=== PATIENT | male | born 2005 | race Caucasian/White ===

== ENCOUNTER 2023-09-18 16:54 | Emergency (ER) | payer BC, MEDICAID ==
[~2023-09-18] VITALS: Ht 177.8 cm; Wt 63.5 kg
[2023-09-18] MEDS: ondansetron/PF 4mg/2ml inj IV ONE (17:43)
[2023-09-18 17:47] LABS: EOSINOPHILS % (AUTO) 0 % (0-6); HEMOGLOBIN 14.3 g/dl (14.0-17.9); MEAN CORPUSCULAR VOLUME 84.5 FL (78-98); MEAN PLATELET VOLUME 7.7 FL (7.4-10.4)
[2023-09-18 17:48] LABS: BASOPHILS % (AUTO) 0.1 % (0-1); HEMATOCRIT 42.3 % (42.0-52.0); LYMPHOCYTES # (AUTO) 1.4 X10'3 (1.1-4.8); LYMPHOCYTES % (AUTO) 8.7 % (21-51); MEAN CORPUSCULAR HEMOGLOBIN 28.6 PG (27.0-31.0); MEAN CORPUSCULAR HGB CONC 33.8 g/dL (33.0-36.5); MONOCYTES # (AUTO) 0.5 X10'3 (0-0.9); MONOCYTES % (AUTO) 3.1 % (2-12); NEUTROPHILS # (AUTO) 13.9 X10'3 (1.8-7.7); NEUTROPHILS % (AUTO) 88.1 % (42-75); PLATELET COUNT 304 X10'3 (140-440); RED BLOOD COUNT 5.01 X10'6 (4.70-6.10); RED CELL DISTRIBUTION WIDTH 13.2 % (11.5-14.5); WHITE BLOOD COUNT 15.8 X10'3 (4.5-11.0)
[2023-09-18 17:59] LABS: ALANINE AMINOTRANSFERASE 21 U/L (12-78); ALBUMIN 4.8 G/DL (3.4-5.0); ALBUMIN/GLOBULIN RATIO 1.7 (1.1-1.5); ALKALINE PHOSPHATASE 49 IU/L (20-180); ANION GAP 15 (8-16); ASPARTATE AMINO TRANSFERASE 17 U/L (10-37); BLOOD UREA NITROGEN 10 MG/DL (7-18); BUN/CREATININE RATIO 10.4 (10.0-20.0); CALCIUM 9.7 MG/DL (8.5-10.1); CHLORIDE 105 MMOL/L (99-107); CREATININE 0.96 MG/DL (0.60-1.10); GLUCOSE 125 MG/DL (70-104); LIPASE 22 U/L (16-77); POTASSIUM 3.4 MMOL/L (3.5-5.1); SODIUM 141 MMOL/L (135-145); TOTAL PROTEIN 7.7 G/DL (6.4-8.2); eCRCL 111 ML/MIN; eGFR > 90 ML/MIN
[2023-09-18] MEDS: diphenoxylate/atropine tablet (Lomotil) PO ONE (18:43)
[2023-09-18] MEDS: normal saline 1000ml 1,000 ML IV ONE (18:43)
[2023-09-18] MEDS ORDERED: ONDA-245 PO (19:54)
[2023-09-18 19:58] LABS: BILIRUBIN,URINE NEGATIVE (Neg); CLARITY,URINE CLEAR (Clear); COLOR,URINE YELLOW (Yellow); GLUCOSE, URINE NEGATIVE (Neg); KETONES,URINE >=80 mg/dl (Neg); LEUKOCYTE ESTERASE ,URINE NEGATIVE (Neg); NITRITES, URINE NEGATIVE (Neg); OCCULT BLOOD,URINE NEGATIVE (Neg); PROTEIN,URINE NEGATIVE (Neg); UROBILINOGEN,URINE 0.2 E.U/dL (0.2-1.0)
[2023-09-18 19:59] LABS: UA COLLECTION TYPE CLN CATCH MIDSTREAM
[2023-09-18 20:04] VITALS: BP 104/68; PULSE 74; RESP 12; TEMP 98.3; O2SAT 98
== END 2023-09-18 20:11 | disposition home or self-care (01) ==
LOC: ER 16:55
DX: R11.2 Nausea with vomiting, unspecified (principal); R19.7 Diarrhea, unspecified; R10.84 Generalized abdominal pain
CPT/HCPCS: 36415; 80053; 81003; 83690; 85025; 96361; 96374; 99285; J2405; J7030

== ENCOUNTER 2023-09-20 06:39 | Emergency (ER) | payer BC, MEDICAID ==
[~2023-09-20] VITALS: Ht 177.8 cm; Wt 63.1 kg
[~2023-09-20 06:39] MED LIST: ONDA-245 PO
[2023-09-20 07:18] LABS: BASOPHILS % (AUTO) 0.2 % (0-1); EOSINOPHILS # (AUTO) 0.1 X10'3 (0-0.9); EOSINOPHILS % (AUTO) 1.1 % (0-6); HEMATOCRIT 42.8 % (42.0-52.0); HEMOGLOBIN 14.8 g/dl (14.0-17.9); LYMPHOCYTES # (AUTO) 2.4 X10'3 (1.1-4.8); LYMPHOCYTES % (AUTO) 25.2 % (21-51); MEAN CORPUSCULAR HGB CONC 34.6 g/dL (33.0-36.5); MEAN CORPUSCULAR VOLUME 83.9 FL (78-98); MEAN PLATELET VOLUME 7.5 FL (7.4-10.4); MONOCYTES # (AUTO) 0.6 X10'3 (0-0.9); NEUTROPHILS # (AUTO) 6.4 X10'3 (1.8-7.7); NEUTROPHILS % (AUTO) 67.5 % (42-75); PLATELET COUNT 284 X10'3 (140-440); RED CELL DISTRIBUTION WIDTH 12.9 % (11.5-14.5); WHITE BLOOD COUNT 9.5 X10'3 (4.5-11.0)
[2023-09-20] MEDS: metoclopramide 5 mg/ml inj IV ONE (07:27)
[2023-09-20] MEDS: diphenhydrAMINE 50 mg/ml inj IV ONE (07:29)
[2023-09-20] MEDS: glycopyrrolate 0.2mg/ml inj IV ONE (07:32)
[2023-09-20] MEDS: acetaminophen 1,000mg/100ml IV 100 ML IV STA (07:35)
[2023-09-20 07:36] LABS: ALANINE AMINOTRANSFERASE 23 U/L (12-78); ALBUMIN 4.5 G/DL (3.4-5.0); ALBUMIN/GLOBULIN RATIO 1.5 (1.1-1.5); ALKALINE PHOSPHATASE 48 IU/L (20-180); ANION GAP 10 (8-16); ASPARTATE AMINO TRANSFERASE 12 U/L (10-37); BILIRUBIN,TOTAL 0.9 MG/DL (0.1-1.0); BLOOD UREA NITROGEN 18 MG/DL (7-18); BUN/CREATININE RATIO 16.1 (10.0-20.0); CALCIUM 9.1 MG/DL (8.5-10.1); CHLORIDE 104 MMOL/L (99-107); CREATININE 1.12 MG/DL (0.60-1.10); GLUCOSE 100 MG/DL (70-104); LIPASE 29 U/L (16-77); POTASSIUM 3.3 MMOL/L (3.5-5.1); SODIUM 139 MMOL/L (135-145); TOTAL CARBON DIOXIDE 25.3 MMOL/L (24-32); TOTAL PROTEIN 7.5 G/DL (6.4-8.2); eCRCL 95 ML/MIN; eGFR 84 ML/MIN
[2023-09-20] MEDS: normal saline 1000ML IV soln IVB ONE ×2 (07:36→08:16)
[2023-09-20 07:59] LABS: BILIRUBIN,URINE SMALL (Neg); CLARITY,URINE SLIGHTLY CLOUDY (Clear); COLOR,URINE YELLOW (Yellow); GLUCOSE, URINE NEGATIVE (Neg); KETONES,URINE >=80 mg/dl (Neg); LEUKOCYTE ESTERASE ,URINE NEGATIVE (Neg); NITRITES, URINE NEGATIVE (Neg); OCCULT BLOOD,URINE SMALL (Neg); PH,URINE 5.5 (4.8-8.0); PROTEIN,URINE NEGATIVE (Neg); UROBILINOGEN,URINE 0.2 E.U/dL (0.2-1.0)
[2023-09-20 08:05] LABS: UA COLLECTION TYPE CLN CATCH MIDSTREAM
[2023-09-20 08:06] LABS: BACTERIA,URINE FEW /HPF (Neg); MUCUS STRANDS FEW /LPF (Neg); RBC,URINE 0-2 /HPF (0-2); SQUAMOUS EPITHELIAL CELL,UR FEW /LPF (FEW)
[2023-09-20] MEDS: ringers solution, lactated 1000ml IV soln IV ONE (09:06)
[2023-09-20] MEDS: ketorolac trometh 15mg/ml vial 15 MG/ML ML IV ONE (09:06)
[2023-09-20] MEDS: haloperidol lactate 5mg/ml inj IM ONE (09:54)
[2023-09-20 10:48] VITALS: BP 115/75; PULSE 70; RESP 15; TEMP 98.2; O2SAT 96
== END 2023-09-20 11:04 | disposition home or self-care (01) ==
LOC: ER 06:40
DX: R10.13 Epigastric pain (principal); R11.2 Nausea with vomiting, unspecified; R68.83 Chills (without fever); Z79.899 Other long term (current) drug therapy
CPT/HCPCS: 36415; 80053; 81001; 83690; 84145; 85025; 87088; 96361; 96372; 96374; 96375; 99285; J0131; J1200; J1630; J1885; J2765; J3490; J7030; J7120; 96365

== ENCOUNTER 2023-09-21 11:17 | Emergency (ER) | payer BC, MEDICAID ==
[~2023-09-21] VITALS: Ht 177.8 cm; Wt 63.7 kg
[2023-09-21 14:25] LABS: BASOPHILS % (AUTO) 0.2 % (0-1); EOSINOPHILS % (AUTO) 0.2 % (0-6); HEMATOCRIT 42.5 % (42.0-52.0); HEMOGLOBIN 14.5 g/dl (14.0-17.9); LYMPHOCYTES # (AUTO) 1.7 X10'3 (1.1-4.8); LYMPHOCYTES % (AUTO) 16.4 % (21-51); MEAN CORPUSCULAR HEMOGLOBIN 28.6 PG (27.0-31.0); MEAN CORPUSCULAR HGB CONC 34.2 g/dL (33.0-36.5); MEAN CORPUSCULAR VOLUME 83.5 FL (78-98); MEAN PLATELET VOLUME 7.6 FL (7.4-10.4); MONOCYTES # (AUTO) 0.7 X10'3 (0-0.9); MONOCYTES % (AUTO) 6.7 % (2-12); NEUTROPHILS # (AUTO) 7.9 X10'3 (1.8-7.7); NEUTROPHILS % (AUTO) 76.5 % (42-75); PLATELET COUNT 316 X10'3 (140-440); RED BLOOD COUNT 5.09 X10'6 (4.70-6.10); RED CELL DISTRIBUTION WIDTH 13.2 % (11.5-14.5); WHITE BLOOD COUNT 10.3 X10'3 (4.5-11.0)
[2023-09-21 14:53] LABS: ALANINE AMINOTRANSFERASE 29 U/L (12-78); ALBUMIN 4.7 G/DL (3.4-5.0); ALBUMIN/GLOBULIN RATIO 1.6 (1.1-1.5); ALKALINE PHOSPHATASE 47 IU/L (20-180); ANION GAP 15 (8-16); ASPARTATE AMINO TRANSFERASE 36 U/L (10-37); BILIRUBIN,TOTAL 0.9 MG/DL (0.1-1.0); BLOOD UREA NITROGEN 9 MG/DL (7-18); BUN/CREATININE RATIO 7.4 (10.0-20.0); CALCIUM 9.1 MG/DL (8.5-10.1); CHLORIDE 103 MMOL/L (99-107); CREATININE 1.21 MG/DL (0.60-1.10); GLUCOSE 92 MG/DL (70-104); POTASSIUM 3.3 MMOL/L (3.5-5.1); SODIUM 141 MMOL/L (135-145); TOTAL CARBON DIOXIDE 22.7 MMOL/L (24-32); TOTAL PROTEIN 7.6 G/DL (6.4-8.2); eCRCL 88 ML/MIN; eGFR 77 ML/MIN
[2023-09-21 15:23] VITALS: TEMP 98.2
[2023-09-21 16:07] VITALS: BP 126/73; PULSE 78; RESP 18; O2SAT 98
== END 2023-09-21 16:23 | disposition home or self-care (01) ==
LOC: ER 11:18
DX: E87.6 Hypokalemia (principal); R11.2 Nausea with vomiting, unspecified; R19.7 Diarrhea, unspecified; Z79.899 Other long term (current) drug therapy
CPT/HCPCS: 36415; 80053; 85025; 99283

== ENCOUNTER 2024-01-25 20:10 | Emergency (ER) | payer BC, MEDICAID ==
[~2024-01-25] VITALS: Ht 177.8 cm; Wt 54.4 kg
[2024-01-25 20:54] LABS: BASOPHILS % (AUTO) 0.2 % (0-1); EOSINOPHILS % (AUTO) 0.1 % (0-6); HEMATOCRIT 45.5 % (42.0-52.0); MEAN CORPUSCULAR HEMOGLOBIN 29.2 PG (27.0-31.0); MEAN CORPUSCULAR HGB CONC 35.1 g/dL (33.0-36.5); MONOCYTES # (AUTO) 1.7 X10'3 (0-0.9); MONOCYTES % (AUTO) 9.9 % (2-12); NEUTROPHILS # (AUTO) 12.7 X10'3 (1.8-7.7); NEUTROPHILS % (AUTO) 72.8 % (42-75); PLATELET COUNT 338 X10'3 (140-440); RED BLOOD COUNT 5.47 X10'6 (4.70-6.10); WHITE BLOOD COUNT 17.5 X10'3 (4.5-11.0)
[2024-01-25 21:08] LABS: ALANINE AMINOTRANSFERASE 21 U/L (12-78); ALBUMIN 5.2 G/DL (3.4-5.0); ALBUMIN/GLOBULIN RATIO 1.6 (1.1-1.5); ALKALINE PHOSPHATASE 58 IU/L (20-180); ANION GAP 14 (8-16); ASPARTATE AMINO TRANSFERASE 26 U/L (10-37); BILIRUBIN,TOTAL 2.2 MG/DL (0.1-1.0); BLOOD UREA NITROGEN 24 MG/DL (7-18); BUN/CREATININE RATIO 20.7 (10.0-20.0); CALCIUM 9.8 MG/DL (8.5-10.1); CHLORIDE 95 MMOL/L (99-107); CREATININE 1.16 MG/DL (0.60-1.10); GLUCOSE 106 MG/DL (70-104); LIPASE 21 U/L (16-77); POTASSIUM 3.9 MMOL/L (3.5-5.1); SODIUM 135 MMOL/L (135-145); TOTAL CARBON DIOXIDE 26.1 MMOL/L (24-32); TOTAL PROTEIN 8.5 G/DL (6.4-8.2); eCRCL 78 ML/MIN; eGFR 80 ML/MIN
[2024-01-25] MEDS: proCHLORperazine 10 MG/2 ml inj IV ONE (22:54)
[2024-01-25] MEDS: ondansetron/PF 4mg/2ml inj IV ONE (22:55)
[2024-01-25] MEDS: normal saline 1000ML IV soln IVB ONE (22:58)
[2024-01-25] MEDS: ketorolac trometh 15mg/ml vial 15 MG/ML ML IV ONE (23:01)
[2024-01-25 23:21] VITALS: PULSE 70
[2024-01-25] MEDS ORDERED: ONDA-245 PO (23:34)
[2024-01-25 23:42] VITALS: BP 114/69; RESP 14; TEMP 98.4; O2SAT 98
== END 2024-01-25 23:40 | disposition home or self-care (01) ==
LOC: ER 20:11
DX: R11.10 Vomiting, unspecified (principal); F12.90 Cannabis use, unspecified, uncomplicated; Z79.899 Other long term (current) drug therapy
CPT/HCPCS: 36415; 80053; 83690; 84145; 85025; 96361; 96374; 96375; 99284; J0780; J1885; J2405; J7030

== ENCOUNTER 2024-05-08 01:16 | Emergency (ER) | payer MEDICAID | END 2024-05-08 04:13 | disposition home or self-care (01) | LOC: ER 01:16 | DX: K92.0 Hematemesis (principal); Z53.21 Procedure and treatment not carried out due to patient leaving prior to being seen by health care provider ==

== ENCOUNTER 2024-07-26 18:38 | Emergency (ER) | payer MEDICAID ==
[~2024-07-26] VITALS: Ht 177.8 cm; Wt 59.1 kg
[2024-07-26 18:42] VITALS: BP 126/80; PULSE 89; RESP 18; TEMP 98.7; O2SAT 98
[2024-07-26] MEDS ORDERED: ondansetron 4mg rapidly disintigrating tab PO STA (19:14)
[2024-07-26] MEDS ORDERED: OLANZapine **IM** 10 mg inj. IM STA (19:14)
--- NOTE | 2024-07-26 19:25 | Physician Documentation ---
History of Present Illness ~ Chief Complaint: Abdominal Pain w/vomiting Stated Complaint: VOMITTING Time Seen by MD: 19:05 HPI Patient is seen today with complaints of likely cannabis hyperemesis syndrome. Patient states he has dealt with this in the recent past and states he stopped smoking cannabis for about a week and them smoke some on the weekend and shortly thereafter started feeling sick again and nauseous and uncontrollable vomiting. Patient denies any fevers or chills or diarrhea. He has no other concern or complaint at this time. Medication Reconciliation Allergies: Coded Allergies: No Known Allergies (Unverified , 07/26/24) Scheduled Ondansetron 8mg ODT (Ondansetron Odt), 1 TAB PO Q6H Ondansetron 8mg ODT (Ondansetron Odt), 1 TAB PO Q6H Past Medical History Past Medical History: No Pertinent History Past Surgical History: no surgical history Alcohol Use: None Drug Use: none Review of Systems Constitutional: Denies: chills, fever, weakness Eyes: Denies: pain, blurred vision ENT: Denies: ear pain, nose pain, throat pain, mouth pain Respiratory: Denies: cough, shortness of breath Cardiovascular: Denies: chest pain, palpitations Gastrointestinal: Denies: abdominal pain, nausea, vomiting Genitourinary: Denies: burning, dysuria Male Genitalia: Denies: penile discharge, testicular pain Neurological: Denies: headache, dizziness Musculoskeletal: Denies: pain, swelling Integumentary: Denies: rash, lesions Allergic/Immunologic: Denies: hives, itching Hematologic/Lymphatic: Denies: no symptoms reported Psychiatric: Denies: depression, anxiety Physical Exam Vital Signs: Temperature: 98.7, Source: Oral, Heart Rate: 89, Respiratory Rate: 18, BP: 126/80, Pulse Oximetry: 98, Weight: 59.090 Physical Exam General: Awake and Alert, no acute distress. HEENT: Conjunctiva pink, Sclera clear, Mucus Membranes moist. Neck: Supple without masses and tenderness. Resp: Unlabored. Lungs clear to auscultation bilaterally. Heart: Regular Rate and rhythm, normal S1 and S2 without murmur, rub or gallop. Abdomen: Abdomen is soft, nondistended, grossly mildly tender. No masses, no rebound or guarding. Extremities: No cyanosis,clubbing or edema. Skin: Warm and Dry. Progress Results/Orders Results/Orders Completed Orders - ABRIL HOFFMAN PAC Olanzapine Im (Zyprexa I.M. Im On (07/26/24 19:14) Ondansetron Disint. Tablet (Zofran Odt T (07/26/24 19:14) Vital Signs 07/26/24 18:42 Temp 98.7 Pulse 89 Resp 18 B/P (MAP) 126/80 Pulse Ox 98 Medical Decision Making Findings Patient is seen today with complaints of likely cannabis hyperemesis syndrome. Patient states he has dealt with this in the recent past and states he stopped smoking cannabis for about a week and them smoke some on the weekend and shortly thereafter started feeling sick again and nauseous and uncontrollable vomiting. Patient denies any fevers or chills or diarrhea. He has no other concern or complaint at this time. Zofran ODT and Zyprexa IM were ordered for patient however patient left prior to administration of the medication. I strongly advised patient discontinue smoking marijuana indefinitely. Patient voiced understanding. Patient will return to ED with any worsening, concerning or changing symptoms. Departure Disposition: 07 LEFT AWOL/ELOPED Impression: Primary Impression: Cannabinoid hyperemesis syndrome Condition: Stable Additional Instructions: Zofran ODT and Zyprexa IM were ordered for patient however patient left prior to administration of the medication. I strongly advised patient discontinue smoking marijuana indefinitely. Patient voiced understanding. Patient will return to ED with any worsening, concerning or changing symptoms. Referrals: NO PRIMARY CARE PROVIDER (PCP) Signature Scribe Signature: No scribe Attestation: No scribe ABRIL HOFFMAN PAC Jul 26, 2024 19:25
== END 2024-07-26 22:12 | disposition left against medical advice (07) ==
LOC: ER 18:39
DX: R11.10 Vomiting, unspecified (principal); F12.90 Cannabis use, unspecified, uncomplicated; Z79.899 Other long term (current) drug therapy
CPT/HCPCS: 99281; 99282

== ENCOUNTER → 2024-10-04 22:30 | Emergency (ER) | payer MEDICAID | END | disposition left against medical advice (07) | LOC: ER 22:30 | DX: T67.5XXA Heat exhaustion, unspecified, initial encounter (principal); Z53.21 Procedure and treatment not carried out due to patient leaving prior to being seen by health care provider; X58.XXXA Exposure to other specified factors, initial encounter; Y93.89 Activity, other specified; Y92.89 Other specified places as the place of occurrence of the external cause; Y99.8 Other external cause status ==

== ENCOUNTER 2024-10-07 04:39 | Emergency (ER) | payer MEDICAID | END 2024-10-07 06:39 | disposition left against medical advice (07) | LOC: ER 04:39 | DX: R11.2 Nausea with vomiting, unspecified (principal); Z53.21 Procedure and treatment not carried out due to patient leaving prior to being seen by health care provider ==

== ENCOUNTER 2024-12-05 22:26 | Emergency (ER) | payer MEDICAID ==
[~2024-12-05] VITALS: Ht 177.8 cm; Wt 59.1 kg
[2024-12-05 22:48] VITALS: BP 125/92; PULSE 89; RESP 16; TEMP 97.5; O2SAT 98
[2024-12-05 23:10] LABS: MEAN PLATELET VOLUME 7.6 FL (7.4-10.4); RED CELL DISTRIBUTION WIDTH 13.5 % (11.5-14.5)
[2024-12-05 23:41] LABS: CREATININE 1.06 MG/DL (0.60-1.10); TOTAL CARBON DIOXIDE 24.1 MMOL/L (24-32); eCRCL 93 ML/MIN; eGFR 89 ML/MIN
== END 2024-12-06 01:43 | disposition left against medical advice (07) ==
LOC: ER 22:26
DX: R11.10 Vomiting, unspecified (principal); R19.7 Diarrhea, unspecified; Z53.21 Procedure and treatment not carried out due to patient leaving prior to being seen by health care provider
CPT/HCPCS: 36415; 80053; 83690; 85025; 99281